=== PATIENT | female | born 1960 | race Caucasian/White ===

== ENCOUNTER 2023-01-14 10:23 | Outpatient (REF) | payer OTHER, SELFPAY ==
--- NOTE | ~2023-01-14 | XR_ITS ---
EXAMINATION: RIGHT HAND AND WRIST CLINICAL INFORMATION: Injury to right hand and wrist COMPARISON: None TECHNIQUE: 3 views right hand and wrist FINDINGS: No significant bone, joint or soft tissue abnormality is present XR/XR hand wrist RT IMPRESSION: Unremarkable examination.
== END 2023-01-14 10:24 | disposition home or self-care (01) ==
LOC: HO.HMGCX 10:23
PROVIDERS: PCP Pediatrics; Visit Provider Internal Medicine
DX: S69.91XA Unspecified injury of right wrist, hand and finger(s), initial encounter (principal)
CPT/HCPCS: 73110; 73130